=== PATIENT | female | born 1990 | race African-American/Black ===

== ENCOUNTER 2018-02-21 11:20 | Emergency (ER) | payer OTHER ==
[2018-02-21 11:59] VITALS: BP 139/65; PULSE 80; TEMP 98.6; BMI 41.0
[2018-02-21 12:42] LABS: BASO % 0.7 % (0-2.0); EOS % 1.9 % (0-4.5); HEMATOCRIT 38.3 % (32.4-45.2); HEMOGLOBIN 12.8 GM/dL (10.7-15.3); LYMPH % 27.2 % (8-40); MCHC 33.5 g/dl (32.0-36.0); MEAN CELL VOLUME 80.6 fl (80-96); MEAN PLT VOLUME 8.1 fl (7.5-11.1); MONO % 10.2 % (3.8-10.2); PLATELET COUNT 321 K/MM3 (134-434); RBC 4.76 M/mm3 (3.60-5.2); RDW 14.8 % (11.6-15.6); WHITE BLOOD COUNT 6.1 K/mm3 (4.0-10.0)
[2018-02-21 13:20] LABS: URINE APPEARANCE SLCLOUDY; URINE BILIRUBIN NEGATIVE (<2.0 mg/dL); URINE BLOOD 3+ (NEGATIVE); URINE COLOR YELLOW; URINE GLUCOSE (UA) NEGATIVE (NEGATIVE); URINE KETONE NEGATIVE (NEGATIVE); URINE NITRITE NEGATIVE (NEGATIVE); URINE UROBILINOGEN NEGATIVE mg/dL (0.2-1.0)
[2018-02-21 13:27] LABS: URINE LEUK ESTERASE 1+ (NEGATIVE); URINE PROTEIN 1+ (NEGATIVE)
[2018-02-21 13:29] LABS: EPI CELLS RARE /HPF (FEW); URINE MUCUS MANY
--- NOTE | 2018-02-21 13:31 | PDOC ---
History of Present Illness - General Chief Complaint: Vaginal Bleeding Stated Complaint: VAGINAL BLEEDING (3 WKS ) Time Seen by Provider: 02/21/18 12:01 History Source: Patient Exam Limitations: No Limitations - History of Present Illness Travel History: No Initial Comments: 02/21/18 13:28 This 27-year-old obese female presents to the emergency room with complaints of vaginal bleeding with cramps. She states that she is approximately 3 weeks . She states her last menstrual period is on January 12. She has been to her [employer] are ready. She had blood work done but does not know what the result was. She did take a home test. Patient is [employer] is at [facility] in [place] She denies having any nausea, vomiting, headache, abdominal pain, and states that she is having some vaginal bleeding when wiping without clots. On occasion she also has abdominal cramping. No other past medical history Past History - Past Medical History Allergies/Adverse Reactions: Allergies Allergy/AdvReac Type Severity Reaction Status Date / Time No Known Allergies Allergy Verified 02/21/18 11:56 Home Medications: Ambulatory Orders NK [No Known Home Medication] 02/21/18 COPD: No - Suicide/Smoking/Psychosocial Hx Smoking History: Never smoked Have you smoked in the past 12 months: No Information on smoking cessation initiated: No Hx Alcohol Use: No Drug/Substance Use Hx: No Substance Use Type: None Review of Systems - Review of Systems Able to Perform ROS?: Yes Comments:: 02/21/18 13:30 General statement: Vaginal eating with early Hematology: neg history of bleeding/blood thinners Skin: Neg for lesions, rash, bruising. HEENT: Neg symptoms Respiratory: Neg SOB or difficulty in breathing Cardiac: Neg chest pain GI: Neg pain, n/v : Neg problems on voiding MS: Neg for joint pain/stiffness, no edema Neuro: Neg for LOC, weakness, Endocrine: Neg for excess thirst/hunger, cold/heat intolerance, excess sweating Allergies: Neg for allergies *Physical Exam - Vital Signs Last Vital Signs Temp Pulse Resp BP Pulse Ox 98.6 F 80 16 139/65 100 02/21/18 11:56 02/21/18 11:56 02/21/18 11:56 02/21/18 11:56 02/21/18 11:56 - Physical Exam Comments: 02/21/18 13:30 General Appearance: This well appearing 27-year-old obese female V/S: hemodynamically stable, afebrile Skin: WNL of pt's skin color, no signs of pallor, mottling, cyanosis Head:symmetrical Eyes: EOM's intact, PERRLA Ears: denies pain Nose: patent Throat: lips, teeth, gums, tongue, buccal mucos pink and moist Lungs: Chest symmetry equal. Cap refill <3 seconds. Lung sounds clear Cardiac: PMI at R 4MCL space, pos S1 and S2, regular rate. Abdomen: Soft, round, nontender : Not observed Muscularskeletal: Gait steady, ambulated in to ER, no edema +PMS Neuro: AAOx3, cognitively intact, speech clear and appropriate. ED Treatment Course - LABORATORY CBC & Chemistry Diagram: 02/21/18 12:30 - ADDITIONAL ORDERS Additional order review: Laboratory Results 02/21/18 02/21/18 12:34 12:30 Beta HCG, Quant 239.6 Urine Color Yellow Urine Appearance Slcloudy Urine pH 5.0 Ur Specific [place] 1.025 Urine Protein 1+ H Urine Glucose (UA) Negative Urine Ketones Negative Urine Blood 3+ H Urine Nitrite Negative Urine Bilirubin Negative Urine Urobilinogen Negative Ur Leukocyte Esterase 1+ H 02/21/18 12:30 RBC 4.76 MCV 80.6 MCHC 33.5 RDW 14.8 MPV 8.1 Neutrophils % 60.0 Lymphocytes % 27.2 Monocytes % 10.2 Eosinophils % 1.9 Basophils % 0.7 - RADIOLOGY Radiology Studies Ordered: Category Date Time Status TRANSVAGINAL US PREG [US] Stat Ultrasound 02/21/18 12:10 Taken Medical Decision Making - Medical Decision Making 02/21/18 13:30 A/P: This 27-year-old obese female presents to the emergency room with complaints of vaginal bleeding in a early of only 3 weeks. Last menstrual period is January 12. Plan Labs, CBC, type and screen Transvaginal ultrasound UA 02/21/18 14:05 Patient CBC is stable, Type and screen is a positive Transvaginal ultrasound does not show any gestation or embryonic pole UA has leuks and blood but no nitrates HCG is 238. Patient is going to get a copy of all these results and have her return back to her [employer] calling on Thursday. *DC/Admit/Observation/Transfer Diagnosis at time of Disposition: Miscarriage - Discharge Dispostion Disposition: HOME Condition at time of disposition: Good Admit: No - Referrals Referrals: Ryan Villanueva MD [Primary Care Provider] - - Patient Instructions Printed Discharge Instructions: DI for Miscarriage Additional Instructions: Discharge instructions 1. Please follow up with your primary physician within the next few days and explain that you have been seen here in the Emergency Room for vaginal bleeding in early . 2. If you experience any worsening of symptoms, such as heavy bleeding, cramping please return to the ER 3. Rest, avoid any sexual intercourse, douching, tampon use until following up with your [employer]. 4. Drink plenty of water and take Tylenol for pain. - Post Discharge Activity Forms/Work/School Notes: Back to Work
== END 2018-02-21 14:22 | disposition home or self-care (01) ==
LOC: JER 11:20
DX: O26.891 Other specified pregnancy related conditions, first trimester (principal); O02.1 Missed abortion; Z3A.01 Less than 8 weeks gestation of pregnancy
CPT/HCPCS: 36415; 76817-TC; 81003; 81015; 84702; 85025; 86850; 86900; 86901; 99283-25

== ENCOUNTER 2019-10-14 20:26 | Emergency (ER) | payer OTHER ==
[2019-10-14 20:31] VITALS: BP 130/71; PULSE 90; TEMP 98.5; BMI 41.3
--- NOTE | 2019-10-14 21:13 | PDOC ---
History of Present Illness - General Chief Complaint: Vaginal Bleeding Stated Complaint: FIVE WKS [place]/VAGINAL BLEEDING History Source: Patient Exam Limitations: No Limitations - History of Present Illness Initial Comments: 10/14/19 23:58 29 yo (last miscarriage 02/2018) F with LMP 09/08 with positive test on 10/02 presents to the emergency department with spotting and midline abdominal cramping for 2 days. Per the patient, these symptoms began atraumatically and on their own. Per the patient, she denies trauma. She denies the following: flank pain, RLQ and LLQ tenderness, fevers, chills, chest pain, SOB, back pain, hematochezia. She states the symptoms are similar to what she self during her last miscarriage. Allergies: NKDA Past History - Past Medical History Allergies/Adverse Reactions: Allergies Allergy/AdvReac Type Severity Reaction Status Date / Time No Known Allergies Allergy Verified 10/14/19 20:31 Home Medications: Ambulatory Orders NK [No Known Home Medication] 02/21/18 COPD: No - Reproductive History (#): 1 Para: 0 - Psycho Social/Smoking Cessation Hx Smoking History: Never smoked Have you smoked in the past 12 months: No Hx Alcohol Use: No Drug/Substance Use Hx: No Substance Use Type: None Review of Systems - Review of Systems Able to Perform ROS?: Yes Is the patient limited Greek proficient: No Constitutional: No: Chills, Diaphoresis, Fever, Weakness HEENTM: No: Eye Pain, Ear Pain, Nose Pain, Throat Pain, Mouth Pain Respiratory: No: Cough, Shortness of Breath, Hemoptysis Cardiac (ROS): No: Chest Pain, Lightheadedness, Palpitations ABD/GI: Yes: Abdominal cramping. No: Constipated, Diarrhea, Nausea, Rectal Bleeding, Vomiting, Tarry Stools : No: Burning, Dysuria, Hematuria Musculoskeletal: No: Back Pain, Joint Pain, Neck Pain Integumentary: No: Bruising, Erythema, Rash Neurological: No: Headache, Numbness, Tingling, Tremors Psychiatric: No: Change in Appetite Endocrine: No: Unexplained Weight Loss Hematologic/Lymphatic: No: Anemia *Physical Exam - Vital Signs Last Vital Signs Temp Pulse Resp BP Pulse Ox 98.5 F 90 18 130/71 96 10/14/19 20:28 10/14/19 20:28 10/14/19 20:28 10/14/19 20:28 10/14/19 20:28 - Physical Exam General Appearance: Yes: Nourished, Appropriately Dressed. No: Apparent Distress, Intoxicated HEENT: positive: EOMI, BOYD, Normal ENT Inspection, Normal Voice, Symmetrical, TMs Normal, Pharynx Normal, Hearing Grossly Normal. negative: Pale Conjunctivae , Scleral Icterus (R), Scleral Icterus (L), Muffled/Hoarse voice, Pharyngeal Erythema, Tonsillar Exudate, Tonsillar Erythema, Nasal Congestion, Rhinorrhea, Excessive drooling Neck: positive: Trachea midline, Supple. negative: Tender, Lymphadenopathy (R) , Lymphadenopathy (L), Tender lateral, Tender midline Respiratory/Chest: positive: Lungs Clear, Normal Breath Sounds. negative: Chest Tender, Respiratory Distress, Accessory Muscle Use, Rhonchi, Stridor, Wheezing Cardiovascular: positive: Regular Rhythm, Regular Rate, S1, S2. negative: Systolic Murmur Female Pelvic Exam: positive: other (refused pelvic exam) Gastrointestinal/Abdominal: positive: Normal Bowel Sounds, Tender (suprapublic mild tenderness with palpation), Flat, Soft. negative: Distended, Guarding, Rebound Lymphatic: negative: Adenopathy Musculoskeletal: positive: Normal Inspection. negative: CVA Tenderness, Vertebral Tenderness Extremity: positive: Normal Capillary Refill, Normal Inspection, Normal Range of Motion. 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 initial vitals: Initial Vital Signs Temp Pulse Resp BP Pulse Ox 98.5 F 90 18 130/71 96 10/14/19 20:28 10/14/19 20:28 10/14/19 20:28 10/14/19 20:28 10/14/19 20:28 Work up: ddx: threatened vs inevitable vs incomplete miscarriage Laboratory Tests 10/14/19 10/14/19 10/14/19 21:59 21:59 21:59 WBC 7.8 RBC 4.35 Hgb 11.4 Hct 34.7 MCV 79.6 L MCH 26.1 MCHC 32.7 RDW 15.6 Plt Count 295 MPV 8.0 Absolute Neuts (auto) 4.5 Neutrophils % 57.1 Lymphocytes % 31.8 Monocytes % 9.4 Eosinophils % 1.2 Basophils % 0.5 Nucleated RBC % 0 Sodium 138 Potassium 3.9 Chloride 104 Carbon Dioxide 27 Anion Gap 6 L BUN 9.3 Creatinine 0.8 Est GFR (CKD-EPI)AfAm 114.66 Est GFR (CKD-EPI)NonAf 98.93 Random Glucose 96 Calcium 8.9 Total Bilirubin 0.3 AST 14 L ALT 27 Alkaline Phosphatase 60 Total Protein 7.1 Albumin 3.7 Beta HCG, Quant 3966.0 Urine Color Urine Appearance Urine pH Ur Specific [place] Urine Protein Urine Glucose (UA) Urine Ketones Urine Blood Urine Nitrite Urine Bilirubin Urine Urobilinogen Ur Leukocyte Esterase Blood Type Antibody Screen 10/14/19 10/14/19 21:59 22:40 WBC RBC Hgb Hct MCV MCH MCHC RDW Plt Count MPV Absolute Neuts (auto) Neutrophils % Lymphocytes % Monocytes % Eosinophils % Basophils % Nucleated RBC % Sodium Potassium Chloride Carbon Dioxide Anion Gap BUN Creatinine Est GFR (CKD-EPI)AfAm Est GFR (CKD-EPI)NonAf Random Glucose Calcium Total Bilirubin AST ALT Alkaline Phosphatase Total Protein Albumin Beta HCG, Quant Urine Color Yellow Urine Appearance Clear Urine pH 5.5 Ur Specific [place] 1.023 Urine Protein Negative Urine Glucose (UA) Negative Urine Ketones Negative Urine Blood Negative Urine Nitrite Negative Urine Bilirubin Negative Urine Urobilinogen 0.2 Ur Leukocyte Esterase Negative Blood Type A POSITIVE Antibody Screen Negative Labs within normal limits with bhcg at 3966. The patient's TVUS shows a single IUP gestation seen at approximately 6 weeks GA. The cardiac rate was 92 bpm, which is considered slow for this gestational age. The patient was given the findings of the report and instructed to follow up with her OBGYN within 1 week after discharge. She was given return precautions. As stated in the physical exam, the patient refused the pelvic exam. Dispo Discharge Discharge - Discharge Information Problems reviewed: Yes Clinical Impression/Diagnosis: Threatened Condition: Improved Disposition: HOME - Admission No - Follow up/Referral Referrals: Rudnicki,Lambert E, MD [Staff Physician] - - Patient Discharge Instructions Patient Printed Discharge Instructions: DI for Miscarriage, DI for Threatened Additional Instructions: You were seen in the emergency department for your vaginal bleeding. Please see the referred OBGYN doctor within 72 hours after discharge for follow up care and management. Please return to the emergency department with worsening symptoms or new concerning symptoms. - Post Discharge Activity Work/Back to School Note: Back to Work
--- NOTE | 2019-10-14 21:38 | PDOC ---
Attending Attestation - Resident Resident Name: ToritoGarret - ED Attending Attestation I have performed the following: I have examined & evaluated the patient, The case was reviewed & discussed with the resident, I agree w/resident's findings & plan - HPI HPI: 10/14/19 21:36 Pt has a hx of a miscarriage at 3 weeks of in the past February 2018 She is , currently and bleeding. She is approx 5 weeks . 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 She will [facility] with [facility] across the street. Pt has a 6 week IUP on sono; heart rate is only 92bpm on ultrasound. Patient understands that FHT is low; understands the meaning of threatened . 10/15/19 05:51 Pt is eating and drinking and she is comfortable. She is stable for discharge home.
[2019-10-14 22:10] LABS: BASO % 0.5 % (0-2.0); EOS % 1.2 % (0-4.5); HEMATOCRIT 34.7 % (32.4-45.2); HEMOGLOBIN 11.4 GM/dL (10.7-15.3); LYMPH % 31.8 % (8-40); MCH 26.1 pg (25.7-33.7); MCHC 32.7 g/dl (32.0-36.0); MEAN CELL VOLUME 79.6 fl (80-96); MONO % 9.4 % (3.8-10.2); NEUT % 57.1 % (42.8-82.8); PLATELET COUNT 295 K/MM3 (134-434); RBC 4.35 M/mm3 (3.60-5.2); RDW 15.6 % (11.6-15.6); WHITE BLOOD COUNT 7.8 K/mm3 (4.0-10.0)
[2019-10-14 22:37] LABS: ALBUMIN 3.7 g/dl (3.4-5.0); BILIRUBIN,TOTAL 0.3 mg/dL (0.2-1); BLOOD UREA NITROGEN 9.3 mg/dL (7-18); CALCIUM 8.9 mg/dL (8.5-10.1); CREATININE 0.8 mg/dL (0.55-1.3); POTASSIUM 3.9 mmol/L (3.5-5.1); TOT PROT 7.1 g/dl (6.4-8.2)
[2019-10-14 23:10] LABS: PH,URINE 5.5 (5.0-8.0); URINE APPEARANCE CLEAR; URINE BILIRUBIN NEGATIVE (NEGATIVE); URINE COLOR YELLOW; URINE GLUCOSE (UA) NEGATIVE (NEGATIVE); URINE KETONE NEGATIVE (NEGATIVE); URINE LEUK ESTERASE NEGATIVE (NEGATIVE); URINE NITRITE NEGATIVE (NEGATIVE); URINE PROTEIN NEGATIVE (NEGATIVE); URINE UROBILINOGEN 0.2 mg/dL (0.2-1.0)
== END 2019-10-15 00:27 | disposition home or self-care (01) ==
LOC: JER 20:26
DX: O26.891 Other specified pregnancy related conditions, first trimester (principal); O20.0 Threatened abortion; Z3A.01 Less than 8 weeks gestation of pregnancy
CPT/HCPCS: 36415; 76817-TC; 80053; 81003; 84702; 85025; 86850; 86900; 86901; 87086; 99282-25

== ENCOUNTER 2019-12-15 19:08 | Emergency (ER) | payer OTHER ==
--- NOTE | 2019-12-15 19:16 | PDOC ---
Rapid Medical Evaluation Chief Complaint: Cold Symptoms Time Seen by Provider: 12/15/19 19:13 Medical Evaluation: Allergies Allergy/AdvReac Type Severity Reaction Status Date / Time No Known Allergies Allergy Verified 10/14/19 20:31 12/15/19 19:14 I have performed a brief in-person evaluation of this patient. The patient presents with a chief complaint of:fevers/ chills/ acute onset- works in [employer] Pertinent physical exam findings: pale/ shivering I have ordered the following: nothing The patient will proceed to the ED for further evaluation. Discharge Disposition - Diagnosis Influenza - Discharge Dispostion Condition at time of disposition: Stable - Referrals - Patient Instructions - Post Discharge Activity
[2019-12-15 19:20] VITALS: BP 139/90; PULSE 90; TEMP 98.8; BMI 42.3
--- NOTE | 2019-12-15 19:21 | PDOC ---
History of Present Illness - General Chief Complaint: Cold Symptoms Stated Complaint: FEVER Time Seen by Provider: 12/15/19 19:13 History Source: Patient Exam Limitations: No Limitations Past History - Past Medical History Allergies/Adverse Reactions: Allergies Allergy/AdvReac Type Severity Reaction Status Date / Time No Known Allergies Allergy Verified 10/14/19 20:31 Home Medications: Ambulatory Orders Oseltamivir Phosphate [Tamiflu] 75 mg PO BID #10 capsule 12/15/19 COPD: No - Reproductive History (#): 1 Para: 0 - Psycho Social/Smoking Cessation Hx Smoking History: Never smoked Have you smoked in the past 12 months: No Hx Alcohol Use: No Drug/Substance Use Hx: No Substance Use Type: None Review of Systems - Review of Systems Able to Perform ROS?: Yes Is the patient limited German proficient: Yes Constitutional: Yes: Symptoms Reported, See HPI, Fever, Loss of Appetite, Malaise HEENTM: Yes: Symptoms Reported, See HPI, Ear Pain, Nose Congestion, Throat Swelling Respiratory: Yes: Symptoms reported, See HPI, Cough ABD/GI: Yes: Symptoms Reported, Nausea All Other Systems: Reviewed and Negative *Physical Exam - Physical Exam General Appearance: Yes: Nourished, Appropriately Dressed, Apparent Distress, Mild Distress HEENT: positive: BOYD, TMs Normal, Pharynx Normal Neck: positive: Supple. negative: Tender Respiratory/Chest: positive: Lungs Clear (but coarse ), Normal Breath Sounds Extremity: positive: Normal Capillary Refill, Normal Inspection Integumentary: positive: Normal Color, Dry, Warm Discharge - Discharge Information Problems reviewed: No Clinical Impression/Diagnosis: Influenza Condition: Stable Disposition: HOME - Admission No - Additional Discharge Information Prescriptions: Oseltamivir Phosphate [Tamiflu] 75 mg PO BID #10 capsule - Follow up/Referral - Patient Discharge Instructions Patient Printed Discharge Instructions: DI for Viral Upper Respiratory Infection -- Adult Additional Instructions: Rest, Lots of fluids Tamiflu 75mg every 12 hours for 5 days OTC medication for fevers and symptoms - Post Discharge Activity Work/Back to School Note: Back to Work
== END 2019-12-15 19:42 | disposition home or self-care (01) ==
LOC: JER 19:08
DX: J11.1 Influenza due to unidentified influenza virus with other respiratory manifestations (principal)
CPT/HCPCS: 99281-25

== ENCOUNTER 2019-12-19 10:07 | Emergency (ER) | payer OTHER ==
[2019-12-19 10:17] VITALS: BP 120/69; PULSE 78; TEMP 98.3; BMI 42.3
--- NOTE | 2019-12-19 11:22 | PDOC ---
History of Present Illness - General Chief Complaint: Cold Symptoms Stated Complaint: [employer]/SENT BY [employer] FOR FLU TEST Time Seen by Provider: 12/19/19 10:45 History Source: Patient Exam Limitations: No Limitations - History of Present Illness Is this a multiple visit Asthma Patient?: No Associated Symptoms: denies: cough, fever/chills, headaches, loss of appetite, malaise, nausea/vomiting, shortness of breath Past History - Travel Traveled outside of the country in the last 30 days: No - Past Medical History Allergies/Adverse Reactions: Allergies Allergy/AdvReac Type Severity Reaction Status Date / Time No Known Allergies Allergy Verified 10/14/19 20:31 Home Medications: Ambulatory Orders Oseltamivir Phosphate [Tamiflu] 75 mg PO BID #10 capsule 12/15/19 COPD: No - Reproductive History (#): 1 Para: 0 - Immunization History Td Vaccination: Yes TDAP Vaccination: Yes Immunization Up to Date: No - Psycho Social/Smoking Cessation Hx Smoking History: Never smoked Have you smoked in the past 12 months: No Number of Cigarettes Smoked Daily: 1 Information on smoking cessation initiated: No Hx Alcohol Use: No Drug/Substance Use Hx: No Substance Use Type: None Review of Systems - Review of Systems Constitutional: No: Chills, Fever HEENTM: Yes: Nose Congestion. No: Blurred Vision, Ear Discharge, Hearing Loss, Throat Pain Respiratory: No: Orthopnea, Shortness of Breath, Wheezing, Productive cough Musculoskeletal: No: Back Pain, Joint Pain, Muscle Pain Neurological: No: Headache, Numbness, Paresthesia, Weakness Psychiatric: No: Frequent Crying, Sleep Pattern Change, Mood Swings *Physical Exam - Vital Signs Last Vital Signs Temp Pulse Resp BP Pulse Ox 98.3 F 78 16 120/69 97 12/19/19 10:14 12/19/19 10:14 12/19/19 10:14 12/19/19 10:14 12/19/19 10:14 - Physical Exam General Appearance: Yes: Nourished HEENT: positive: EOMI, BOYD, TMs Normal, Pharynx Normal, Nasal Congestion, Rhinorrhea Respiratory/Chest: positive: Lungs Clear, Normal Breath Sounds Cardiovascular: positive: Regular Rhythm, Regular Rate, S1, S2 Gastrointestinal/Abdominal: positive: Normal Bowel Sounds Extremity: positive: Normal Capillary Refill Integumentary: positive: Normal Color 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 Patient reports she had low-grade fever a few days ago she was seen and evaluated. She feels better today. She denies any recent travel. 12/19/19 12: Rapid Discharge - Discharge Information Problems reviewed: Yes Clinical Impression/Diagnosis: URI, acute Condition: Stable Disposition: HOME - Admission No - Additional Discharge Information Prescription Drug Monitoring Program (I-STOP) results: I-STOP not reviewed - Follow up/Referral - Patient Discharge Instructions Patient Printed Discharge Instructions: DI for Common Cold Additional Instructions: Your flu test was negative today. Nasal spray for your congestion. Increase fluids Tylenol Motrin for discomfort. Follow-up with your primary care doctor Return to the emergency room if worsening symptoms occurs. - Post Discharge Activity
== END 2019-12-19 12:45 | disposition home or self-care (01) ==
LOC: JERFT 10:07
DX: J06.9 Acute upper respiratory infection, unspecified (principal)
CPT/HCPCS: 87804; 99282-25